=== PATIENT | male | born 1985 | race African-American/Black ===

== ENCOUNTER 2017-08-07 09:18 | Emergency (ER) | payer MEDICAID ==
[~2017-08-07] VITALS: Ht 175.3 cm; Wt 109.0 kg
[2017-08-07 09:19] VITALS: BP 128/81
== END 2017-08-07 10:23 | disposition home or self-care (01) ==
LOC: ED 09:58
DX: K64.4 Residual hemorrhoidal skin tags (principal); Z76.0 Encounter for issue of repeat prescription; L73.1 Pseudofolliculitis barbae
CPT/HCPCS: 99283

== ENCOUNTER 2017-10-07 13:01 | Emergency (ER) | payer MEDICAID ==
[~2017-10-07] VITALS: Ht 175.3 cm; Wt 113.2 kg
[2017-10-07 13:03] VITALS: BP 116/80
== END 2017-10-07 14:04 | disposition home or self-care (01) ==
LOC: ED 14:00
DX: S86.911A Strain of unspecified muscle(s) and tendon(s) at lower leg level, right leg, initial encounter (principal); K21.9 Gastro-esophageal reflux disease without esophagitis; X58.XXXA Exposure to other specified factors, initial encounter; Y93.89 Activity, other specified; Y99.8 Other external cause status; Y92.009 Unspecified place in unspecified non-institutional (private) residence as the place of occurrence of the external cause
CPT/HCPCS: 99283

== ENCOUNTER 2019-09-08 10:12 | Emergency (ER) | payer MEDICAID ==
[~2019-09-08] VITALS: Ht 175.3 cm; Wt 111.2 kg
--- NOTE | 2019-09-08 11:38 | NUR ---
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
--- NOTE | 2019-09-08 11:39 | NUR ---
PT AMBULATED TO ROOM WITH A STEADY GAIT. HE IS CHANGING INTO A HOSPITAL GOWN.
--- NOTE | 2019-09-08 11:43 | NUR ---
YOEL-Gini IS AT THE BEDSIDE FOR ASSESSMENT
[2019-09-08] MEDS ORDERED: SODIUM CHLORIDE FLUSH 10ML SYR IVF ONE (12:00)
--- NOTE | 2019-09-08 12:03 | NUR ---
PHLEBOTOMY IS AT THE BEDSIDE FOR BLOOD SAMPLING.
[2019-09-08 12:14] LABS: BASOPHILS # (AUTO) 0.04 x10^3/uL (0-0.1); BASOPHILS % (AUTO) 1 % (0-1); EOSINOPHILS # (AUTO) 0.11 x10^3/uL (0-0.4); EOSINOPHILS % (AUTO) 2 % (1-7); LYMPHOCYTES # (AUTO) 2.88 x10^3/uL (1-3.4); LYMPHOCYTES % (AUTO) 41 % (22-44); MD NO; MEAN CORPUSCULAR HEMOGLOBIN 28.6 pg (27.5-34.5); MEAN CORPUSCULAR HGB CONC 32.6 g/dL (33.2-36.2); MEAN PLATELET VOLUME 7.8 fL (7.4-10.4); MONOCYTES # (AUTO) 0.74 x10^3/uL (0.2-0.8); MONOCYTES % (AUTO) 11 % (2-9); NEUTROPHILS # (AUTO) 3.29 x10^3/uL (1.8-6.8); NEUTROPHILS % (AUTO) 47 % (42-75); PLATELET COUNT 265 x10^3/uL (130-400); RED BLOOD COUNT 5.47 x10^6/uL (4.38-5.82); RED CELL DISTRIBUTION WIDTH 14.3 % (9.4-14.8)
[2019-09-08 12:15] LABS: MICROSCOPIC NOT IND
[2019-09-08 12:21] LABS: ALANINE AMINOTRANSFERASE 60 U/L (12-78); ALBUMIN 4.2 g/dL (3.4-5.0); ANION GAP 4 mmol/L (5-15); CALCIUM 9.6 mg/dL (8.5-10.1); CHLORIDE 105 mmol/L (98-107)
[2019-09-08 12:26] LABS: ALKALINE PHOSPHATASE 85 U/L (45-117); BILIRUBIN,TOTAL 0.4 mg/dL (0.2-1.0); CREATININE 1.14 mg/dL (0.7-1.3); TOTAL PROTEIN 8.9 g/dL (6.4-8.2); TROPONIN I < 0.015 ng/mL (0.000-0.045)
--- NOTE | 2019-09-08 13:01 | NUR ---
KWAKU (RN) IS ASSUMING CARE OF THIS PT AT THIS TIME. SBAR REPORT WAS EXCHANGED AT THE BEDSIDE.
--- NOTE | 2019-09-08 13:02 | NUR ---
BEDSIDE REPORT FROM TAWANNA NOVA. PT IN CT AT THIS TIME
[2019-09-08 13:49] VITALS: BP 104/85
--- NOTE | 2019-09-08 13:50 | NUR ---
PT RETURNED FROM MD STERLING TO SEE PT.
== END 2019-09-08 15:13 ==
LOC: ED 12:36
DX: S39.012A Strain of muscle, fascia and tendon of lower back, initial encounter (principal); S39.011A Strain of muscle, fascia and tendon of abdomen, initial encounter; I45.10 Unspecified right bundle-branch block; R06.02 Shortness of breath; R10.9 Unspecified abdominal pain; R07.89 Other chest pain; X58.XXXA Exposure to other specified factors, initial encounter; K21.9 Gastro-esophageal reflux disease without esophagitis; Y93.89 Activity, other specified; Y92.89 Other specified places as the place of occurrence of the external cause; Y99.8 Other external cause status
CPT/HCPCS: 36415; 71045; 74176; 80053; 81003; 84484; 85025; 93005; 99285

== ENCOUNTER 2019-09-29 21:48 | Emergency (ER) | payer MEDICAID ==
[~2019-09-29] VITALS: Ht 175.3 cm; Wt 104.8 kg
[2019-09-29 21:49] VITALS: BP 99/79
--- NOTE | 2019-09-29 22:00 | NUR ---
PA AT BEDSIDE TO ASSESS
[2019-09-29] MEDS ORDERED: IBUPROFEN 600 MG TABLET ONE (22:10)
--- NOTE | 2019-09-29 22:21 | NUR ---
MD LOPEZ POC AT THIS TIME
[2019-09-29] MEDS ORDERED: IBUPROFEN 600 MG TABLET PO ONE (22:30)
== END 2019-09-29 22:27 | disposition home or self-care (01) ==
LOC: ED 22:01
DX: S80.12XA Contusion of left lower leg, initial encounter (principal); K21.9 Gastro-esophageal reflux disease without esophagitis; W22.8XXA Striking against or struck by other objects, initial encounter; Y93.89 Activity, other specified; Y92.410 Unspecified street and highway as the place of occurrence of the external cause; Y99.8 Other external cause status
CPT/HCPCS: 99283

== ENCOUNTER 2019-10-14 17:52 | Emergency (ER) | payer MEDICAID ==
[~2019-10-14] VITALS: Ht 175.3 cm; Wt 109.3 kg
[2019-10-14 17:56] VITALS: BP 105/81
--- NOTE | 2019-10-14 18:32 | NUR ---
PT STATES BILAT LE SWELLING X1 WEEK. DENIES OTHER COMPLAINT. PT ON MONITORS, VSS. AWAITING LAB RESULTS. CONT TO MONITOR.
[2019-10-14 18:42] LABS: BASOPHILS # (AUTO) 0.03 x10^3/uL (0-0.1); BASOPHILS % (AUTO) 1 % (0-1); EOSINOPHILS # (AUTO) 0.16 x10^3/uL (0-0.4); EOSINOPHILS % (AUTO) 2 % (1-7); LYMPHOCYTES # (AUTO) 2.91 x10^3/uL (1-3.4); LYMPHOCYTES % (AUTO) 43 % (22-44); MD NO; MEAN CORPUSCULAR HGB CONC 32.8 g/dL (33.2-36.2); MEAN CORPUSCULAR VOLUME 88.4 fL (81-97); MEAN PLATELET VOLUME 7.8 fL (7.4-10.4); MONOCYTES # (AUTO) 0.59 x10^3/uL (0.2-0.8); MONOCYTES % (AUTO) 9 % (2-9); NEUTROPHILS # (AUTO) 3.12 x10^3/uL (1.8-6.8); NEUTROPHILS % (AUTO) 46 % (42-75); PLATELET COUNT 266 x10^3/uL (130-400); RED BLOOD COUNT 4.65 x10^6/uL (4.38-5.82); RED CELL DISTRIBUTION WIDTH 14.9 % (9.4-14.8)
[2019-10-14 18:52] LABS: ALBUMIN 3.6 g/dL (3.4-5.0); ANION GAP 7 mmol/L (5-15); CHLORIDE 109 mmol/L (98-107); CREATININE 0.97 mg/dL (0.7-1.3)
--- NOTE | 2019-10-14 19:05 | NUR ---
REPORT GIVEN TO MARIO NOVA.
--- NOTE | 2019-10-14 20:19 | NUR ---
Patient given discharge instructions and they have confirmed that they understand the instructions. Patient ambulatory with steady gait.
== END 2019-10-14 20:29 | disposition home or self-care (01) ==
LOC: ED 20:22
DX: R60.0 Localized edema (principal); M79.89 Other specified soft tissue disorders; K21.9 Gastro-esophageal reflux disease without esophagitis
CPT/HCPCS: 36415; 80048; 82040; 85025; 99283

== ENCOUNTER 2019-10-26 23:59 | Emergency (ER) | payer MEDICAID ==
[~2019-10-26] VITALS: Ht 175.3 cm; Wt 103.7 kg
[2019-10-27] VITALS: BP 125/91
== END 2019-10-27 00:30 | disposition home or self-care (01) ==
LOC: ED 10-27 00:23
DX: S39.012A Strain of muscle, fascia and tendon of lower back, initial encounter (principal); G89.11 Acute pain due to trauma; M79.601 Pain in right arm; K21.9 Gastro-esophageal reflux disease without esophagitis; F17.200 Nicotine dependence, unspecified, uncomplicated; W18.39XA Other fall on same level, initial encounter; Y93.89 Activity, other specified; Y92.89 Other specified places as the place of occurrence of the external cause; Y99.8 Other external cause status
CPT/HCPCS: 99283

== ENCOUNTER 2019-12-09 00:37 | Emergency (ER) | payer MEDICAID | END 2019-12-09 00:47 | LOC: ED 00:42 | DX: S80.861A Insect bite (nonvenomous), right lower leg, initial encounter (principal); Z53.21 Procedure and treatment not carried out due to patient leaving prior to being seen by health care provider; W57.XXXA Bitten or stung by nonvenomous insect and other nonvenomous arthropods, initial encounter; Y93.89 Activity, other specified; Y92.89 Other specified places as the place of occurrence of the external cause; Y99.8 Other external cause status ==

== ENCOUNTER 2020-01-14 16:50 | Emergency (ER) | payer MEDICAID ==
[~2020-01-14] VITALS: Ht 175.3 cm; Wt 112.9 kg
[2020-01-14] MEDS ORDERED: SODIUM CHLORIDE FLUSH 10ML SYR IVF ONE (17:30)
[2020-01-14 17:52] LABS: BASOPHILS # (AUTO) 0.04 x10^3/uL (0-0.1); BASOPHILS % (AUTO) 0 % (0-1); EOSINOPHILS # (AUTO) 0.23 x10^3/uL (0-0.4); EOSINOPHILS % (AUTO) 3 % (1-7); LYMPHOCYTES # (AUTO) 4.22 x10^3/uL (1-3.4); LYMPHOCYTES % (AUTO) 47 % (22-44); MD NO; MEAN PLATELET VOLUME 7.6 fL (7.4-10.4); MONOCYTES # (AUTO) 0.72 x10^3/uL (0.2-0.8); MONOCYTES % (AUTO) 8 % (2-9); NEUTROPHILS % (AUTO) 42 % (42-75); PLATELET COUNT 261 x10^3/uL (130-400); RED BLOOD COUNT 5.08 x10^6/uL (4.38-5.82); RED CELL DISTRIBUTION WIDTH 14.6 % (9.4-14.8)
[2020-01-14 18:04] LABS: ALBUMIN 3.9 g/dL (3.4-5.0); ANION GAP 5 mmol/L (5-15); CALCIUM 8.8 mg/dL (8.5-10.1); CHLORIDE 108 mmol/L (98-107); CREATININE 0.96 mg/dL (0.7-1.3)
[2020-01-14 18:15] VITALS: BP 122/69
[2020-01-14] MEDS ORDERED: OMNIPAQUE 350 MG/ML, 75ML BOTTLE ONE (18:51)
== END 2020-01-14 19:40 | disposition home or self-care (01) ==
LOC: ED 17:17
DX: R22.0 Localized swelling, mass and lump, head (principal); R68.84 Jaw pain; K21.9 Gastro-esophageal reflux disease without esophagitis; F17.200 Nicotine dependence, unspecified, uncomplicated
CPT/HCPCS: 36415; 70487; 80048; 82040; 85025; 99285; Q9967

== ENCOUNTER 2020-03-03 16:46 | Emergency (ER) | payer MEDICAID ==
[~2020-03-03] VITALS: Ht 175.3 cm; Wt 113.8 kg
[2020-03-03 16:50] VITALS: BP 131/78
--- NOTE | 2020-03-03 16:55 | NUR ---
INITIAL PT CONTACT. PT PRESENTS TO ED C/O R EYE IRRITATION SINCE YEST. "ITCHY, FEELS LIKE SAND OR SOMETHING IN MY EYE, BOTH UPPER AND LOWER LID". PT REPORTS SLIGHT, INTERMITTENT BLURRED VISION. R POSTERIOR RIB PAIN FROM SLEEPING ON UNCOMFORTABLE BED X1 MONTH ALSO. PT SITTING UPRIGHT IN CHAIR. DENIES ANY NEEDS AT THIS TIME. CALL LIGHT AND PERSONAL BELONGINGS WITHIN REACH.
[2020-03-03] MEDS ORDERED: PROPARACAINE OPHTH 0.5%, 15ML ONE (17:30)
[2020-03-03] MEDS ORDERED: FLUORESCEIN OPHTHALMIC 1 MG STRIP ONE (17:30)
--- NOTE | 2020-03-03 17:55 | NUR ---
Patient given discharge instructions and they have confirmed that they understand the instructions. Patient ambulatory with steady gait.
== END 2020-03-03 17:57 | disposition home or self-care (01) ==
LOC: ED 17:50
DX: S29.012A Strain of muscle and tendon of back wall of thorax, initial encounter (principal); H10.021 Other mucopurulent conjunctivitis, right eye; K21.9 Gastro-esophageal reflux disease without esophagitis; F17.210 Nicotine dependence, cigarettes, uncomplicated; X58.XXXA Exposure to other specified factors, initial encounter; Y93.89 Activity, other specified; Y92.89 Other specified places as the place of occurrence of the external cause; Y99.8 Other external cause status
CPT/HCPCS: 99283; 99406

== ENCOUNTER 2020-03-06 11:31 | Emergency (ER) | payer MEDICAID ==
[~2020-03-06] VITALS: Ht 175.3 cm; Wt 113.6 kg
--- NOTE | 2020-03-06 12:09 | NUR ---
PT STATES "IT FEELS LIKE I BURP INWARD, SOMETHING IS UP" PT STATES HAVING INDIGESTION/CP FOR PAST THREE DAYS, DENIES N/V/SOB. PT TO CARD MONITOR, BP, CONT PULSE OX
[2020-03-06 12:59] LABS: BASOPHILS % (AUTO) 1 % (0-1); EOSINOPHILS % (AUTO) 1 % (1-7); LYMPHOCYTES % (AUTO) 43 % (22-44); MD NO; MEAN CORPUSCULAR HGB CONC 33.7 g/dL (33.2-36.2); MEAN PLATELET VOLUME 7.7 fL (7.4-10.4); MONOCYTES % (AUTO) 7 % (2-9); NEUTROPHILS % (AUTO) 48 % (42-75); PLATELET COUNT 256 x10^3/uL (130-400); RED BLOOD COUNT 5.03 x10^6/uL (4.38-5.82); RED CELL DISTRIBUTION WIDTH 14.1 % (9.4-14.8)
[2020-03-06] MEDS ORDERED: MAALOX/HYOSCYAMINE/LIDOCAINE 45 ML BTL PO ONE (13:00)
[2020-03-06] MEDS ORDERED: FAMOTIDINE 20 MG TABLET PO ONE (13:00)
[2020-03-06] MEDS ORDERED: FAMOTIDINE 20 MG TABLET ONE (13:03)
[2020-03-06] MEDS ORDERED: MAALOX/HYOSCYAMINE/LIDOCAINE 45 ML BTL ONE (13:03)
[2020-03-06 13:06] LABS: ALANINE AMINOTRANSFERASE 66 U/L (12-78); ALBUMIN 3.9 g/dL (3.4-5.0); ANION GAP 4 mmol/L (5-15); CALCIUM 9.3 mg/dL (8.5-10.1); CHLORIDE 108 mmol/L (98-107); CREATININE 1.01 mg/dL (0.7-1.3)
--- NOTE | 2020-03-06 13:06 | NUR ---
BREAK RN: PT MEDICATED PER EMAR.
[2020-03-06 13:11] LABS: ALKALINE PHOSPHATASE 79 U/L (45-117); BILIRUBIN,TOTAL 0.4 mg/dL (0.2-1.0); TOTAL PROTEIN 7.8 g/dL (6.4-8.2); TROPONIN I < 0.015 ng/mL (0.000-0.045)
[2020-03-06 14:19] VITALS: BP 113/70
== END 2020-03-06 14:28 | disposition home or self-care (01) ==
LOC: ED 14:16
DX: K29.70 Gastritis, unspecified, without bleeding (principal); K21.9 Gastro-esophageal reflux disease without esophagitis; R07.89 Other chest pain; R10.13 Epigastric pain; I44.0 Atrioventricular block, first degree; I45.10 Unspecified right bundle-branch block; F17.200 Nicotine dependence, unspecified, uncomplicated
CPT/HCPCS: 36415; 71045; 80053; 83690; 84484; 85025; 93005; 99285